=== PATIENT | male | born 1985 | race Caucasian/White ===

== ENCOUNTER 2018-01-17 08:19 | Outpatient (CLI) | payer BC ==
--- NOTE | 2018-01-17 09:36 | ULT ---
COMPLETE ABDOMEN ULTRASOUND: INDICATION: History of elevated LFTs. FINDINGS: There is mild fatty infiltration of the liver. Trace amount of gallbladder sludge is present within the gallbladder. No sonographic Liriano's sign, gallbladder wall thickening, or pericholecystic fluid is seen. The common bile duct measured 3 mm. Visualized aspects of the pancreas are unremarkable. The spleen measured 12 cm in length. Visualized aspects of the abdominal aorta and IVC were within normal limits. The right kidney measures 11 cm in length and the left measured 12.2 cm. No focal re nal lesion or hydronephrosis is evident. IMPRESSION: 1. Fatty liver. 2. Mild amount of gallbladder sludge without sonographic evidence of acute cholecystitis. POS: [facility]
== END 2018-01-17 08:20 | disposition home or self-care (01) ==
LOC: SCSULT 08:19
PROVIDERS: ATTEND Family Medicine
DX: R94.5 Abnormal results of liver function studies (principal); K76.0 Fatty (change of) liver, not elsewhere classified; K83.9 Disease of biliary tract, unspecified
CPT/HCPCS: 76700